=== PATIENT | male | born 1995 | race Hispanic/Latino ===

== ENCOUNTER 2019-02-11 16:01 | Emergency (ER) | payer SELFPAY ==
[~2019-02-11] VITALS: Ht 180.3 cm; Wt 97.5 kg
[2019-02-11] MEDS ORDERED: CLINDAMYCIN PHOS 600 MG/ 4 ML VIAL IM ONE (16:30)
[2019-02-11] MEDS ORDERED: HYDROCODONE/APAP 5MG-325MG TAB PO STA (16:51)
[2019-02-11] MEDS ORDERED: ULTRAM50 MG PO (17:06)
[2019-02-11] MEDS ORDERED: CLINDAMYCIN HC300 MG PO (17:06)
[2019-02-11] MEDS ORDERED: IBUPROFEN 600 MG TAB PO STA (17:13)
[2019-02-11] MEDS ORDERED: TRAMADOL HCL 50 MG TAB PO ONE (17:15)
[2019-02-11 17:33] VITALS: BP 116/64
== END 2019-02-11 17:41 | disposition home or self-care (01) ==
LOC: ER 16:01
DX: K04.7 Periapical abscess without sinus (principal); R51 Headache
CPT/HCPCS: 99283